=== PATIENT | male | born 1955 | race Caucasian/White ===

== ENCOUNTER 2022-12-06 11:57 | Day surgery (SDC) | payer MEDICARE ==
[2022-12-06] MEDS ORDERED: Depo-Medrol 40 MG/ML IM ONE (11:58)
[2022-12-06] MEDS ORDERED: Lactated Ringers 1,000 ML IV ONE (11:58)
[2022-12-06] MEDS ORDERED: LIDOCAINE HCL 2% 100 MG/5 ML IJ ONE (11:58)
[2022-12-06] MEDS ORDERED: Pepcid 20 MG VIAL IV ONE (14:10)
[2022-12-06] MEDS ORDERED: Zofran 4 MG/2 ML VIAL ONE (14:10)
[2022-12-06] MEDS ORDERED: Reglan 10 MG/2 ML ONE (14:10)
[2022-12-06] MEDS ORDERED: DIPRIVAN 200 MG/20 ML IV ONE (15:01)
--- NOTE | 2022-12-06 16:38 | XRAY ---
Indication: Bilateral L4-S1 MBB. Intraoperative fluoroscopy provided for 13 seconds. Single digital spot image submitted for interpretation demonstrates posterior needle tips projecting over the expected left and right L4-S1 nerve roots. Correlate with intraoperative findings/report. Incidental L4/L5 hypoplasty.
--- NOTE | 2022-12-06 16:42 | XRAY ---
13 seconds fluoroscopy time in surgery for bilateral L4-S1 MBB.
== END 2022-12-06 15:30 | disposition home or self-care (01) ==
LOC: SDC-PAIN 11:57
PROVIDERS: ATTEND Psychiatry & Neurology Pain Medicine
DX: M47.816 Spondylosis without myelopathy or radiculopathy, lumbar region (principal)
CPT/HCPCS: 64493; 64494; 72020; 77002; J1030; J2405; J2704

== ENCOUNTER 2023-01-03 11:15 | Day surgery (SDC) | payer MEDICARE ==
[2023-01-03] MEDS ORDERED: Lactated Ringers 1,000 ML IV ONE (11:16)
[2023-01-03] MEDS ORDERED: Depo-Medrol 40 MG/ML IM ONE ×2 (11:16)
[2023-01-03] MEDS ORDERED: LIDOCAINE HCL 1% 50 MG/5 ML VL PF IJ ONE (11:16)
[2023-01-03] MEDS ORDERED: BUPIVACAINE 0.5% VIAL IJ ONE ×2 (11:16)
[2023-01-03] MEDS ORDERED: Xopenex 1.25 MG/0.5 ML UD NEBULE IH ONE ×2 (12:19→12:33)
[2023-01-03] MEDS ORDERED: Sodium Chloride 3 ML UD NEBULES IH ONE ×2 (12:20→12:35)
[2023-01-03 13:30] VITALS: PULSE 71; O2SAT 96
[2023-01-03] MEDS ORDERED: DIPRIVAN 200 MG/20 ML IV ONE (14:33)
--- NOTE | 2023-01-03 16:27 | XRAY ---
Indication: Bilateral L4-S1 MBB. Intraoperative fluoroscopy provided for 11 seconds. Single digital spot image submitted for interpretation demonstrates posterior needle tips projecting over the expected left and right L4-S1 nerve roots. Correlate with intraoperative findings/report. Incidental L4/L5 kyphoplasty.
--- NOTE | 2023-01-03 16:42 | XRAY ---
11 seconds fluoroscopy time in surgery for bilateral L4-S1 MBB.
== END 2023-01-03 14:55 | disposition home or self-care (01) ==
LOC: SDC-PAIN 11:15
PROVIDERS: ATTEND Psychiatry & Neurology Pain Medicine
DX: M47.816 Spondylosis without myelopathy or radiculopathy, lumbar region (principal); Z79.899 Other long term (current) drug therapy
CPT/HCPCS: 64493; 64494; 72020; 77002; 94640; J1030; J2001; J2704; A9270-GY

== ENCOUNTER 2023-02-21 13:02 | Day surgery (SDC) | payer MEDICARE ==
[2023-02-21] MEDS ORDERED: BUPIVACAINE 0.5% VIAL IJ ONE (13:03)
[2023-02-21] MEDS ORDERED: LIDOCAINE HCL 1% 50 MG/5 ML VL PF IJ ONE (13:03)
[2023-02-21] MEDS ORDERED: Depo-Medrol 40 MG/ML IM ONE (13:03)
[2023-02-21] MEDS ORDERED: Lactated Ringers 1,000 ML IV ONE (14:52)
[2023-02-21] MEDS ORDERED: DIPRIVAN 200 MG/20 ML IV ONE (14:55)
--- NOTE | 2023-02-21 16:37 | XRAY ---
Indication: Right L4-S1 RFA. Intraoperative fluoroscopy provided for 20 seconds. 3 digital spot images submitted for interpretation demonstrates posterior needle tips projecting over the expected right L4-S1 nerve roots. Correlate with intraoperative findings/report. Incidental L4 and L5 kyphoplasty.
--- NOTE | 2023-02-21 16:43 | XRAY ---
20 seconds of fluoroscopy was used in surgery for a right L4-S1 RFA.
== END 2023-02-21 15:30 | disposition home or self-care (01) ==
LOC: SDC-PAIN 13:02
PROVIDERS: ATTEND Psychiatry & Neurology Pain Medicine
DX: M47.816 Spondylosis without myelopathy or radiculopathy, lumbar region (principal); Z79.899 Other long term (current) drug therapy
CPT/HCPCS: 64635; 64636; 72100; 77002; J1030; J2001; J2704

== ENCOUNTER 2023-02-28 12:45 | Day surgery (SDC) | payer MEDICARE ==
[2023-02-28] MEDS ORDERED: BUPIVACAINE 0.5% VIAL IJ ONE (12:46)
[2023-02-28] MEDS ORDERED: Depo-Medrol 40 MG/ML IM ONE (12:46)
[2023-02-28] MEDS ORDERED: LIDOCAINE HCL 1% 50 MG/5 ML VL PF IJ ONE (12:46)
[2023-02-28] MEDS ORDERED: DIPRIVAN 200 MG/20 ML IV ONE (15:42)
[2023-02-28] MEDS ORDERED: Lactated Ringers 1,000 ML IV ONE (16:43)
--- NOTE | 2023-02-28 16:45 | XRAY ---
Indication: Left L4-S1 RFA. Intraoperative fluoroscopy provided for 18 seconds. 4 digital spot image submitted for interpretation demonstrates posterior needle tips projecting over the expected left L4-S1 nerve roots. Correlate with intraoperative findings/report. Incidental L4-L5 kyphoplasty.
--- NOTE | 2023-02-28 16:47 | XRAY ---
18 seconds of fluoroscopy was used in surgery for a left L4-S1 RFA.
== END 2023-02-28 16:20 | disposition home or self-care (01) ==
LOC: SDC-PAIN 12:45
PROVIDERS: ATTEND Psychiatry & Neurology Pain Medicine
DX: M47.816 Spondylosis without myelopathy or radiculopathy, lumbar region (principal); Z79.899 Other long term (current) drug therapy
CPT/HCPCS: 64635; 64636; 72100; 77002; J1030; J2001; J2704